=== PATIENT | female | born 1955 | race Caucasian/White ===

== ENCOUNTER 2020-02-12 06:27 | Inpatient (IN) | payer MEDICARE, BC ==
[2020-02-12] MEDS ORDERED: cefOXitin 2 GM Vial ONE (06:33)
[2020-02-12] MEDS ORDERED: Scopolamine 1.5 MG Transdermal Patch TOP SCH (07:00)
[2020-02-12] MEDS ORDERED: Celecoxib 200 MG Cap PO ONE (07:00)
[2020-02-12] MEDS ORDERED: Acetaminophen 500 MG Tab PO ONE (07:00)
[2020-02-12] MEDS ORDERED: Neostigmine Methylsulfate 1 MG/ML 5 ML Syringe ONE (07:11)
[2020-02-12] MEDS ORDERED: Rocuronium 50 MG/5 ML Vial ONE (07:11)
[2020-02-12] MEDS ORDERED: Dexamethasone 4 MG/ML SDV ONE (07:11)
[2020-02-12] MEDS ORDERED: Succinylcholine 200 MG/10 ML MDV ONE (07:11)
[2020-02-12] MEDS ORDERED: Propofol 200 MG/20 ML SDV ONE (07:11)
[2020-02-12] MEDS ORDERED: Ondansetron 4 MG/2 ML SDV ONE (07:11)
[2020-02-12] MEDS ORDERED: Glycopyrrolate 0.2 MG/ML 5 ML MDV ONE (07:11)
[2020-02-12] MEDS ORDERED: fentaNYL 250 MCG/5 ML SDV ONE ×2 (07:11→08:23)
[2020-02-12] MEDS ORDERED: Lactated Ringers 1,000 ML ONE (07:14)
[2020-02-12] MEDS ORDERED: Dextrose 5%-Lactated Ringers 1,000 ML IV SCH (07:30)
[2020-02-12] MEDS ORDERED: SODIUM CHLORIDE 0.9% IV SCH (08:00)
[2020-02-12] MEDS ORDERED: Magnesium Sulfate 4.7 GM in Sodium Chloride 0.9% 250 ML IV ONE (08:00)
[2020-02-12] MEDS ORDERED: MAGNESIUM SULFATE IV SCH (08:00)
[2020-02-12] MEDS ORDERED: Ketamine 50 MG in Sodium Chloride 0.9% 49.5 ML IV SCH (08:00)
[2020-02-12] MEDS ORDERED: Ketamine 500 MG/5 ML MDV IV SCH (08:00)
[2020-02-12] MEDS ORDERED: cefOXitin 2 GM in Sodium Chloride 0.9% 50 ML IV ONE (08:00)
[2020-02-12] MEDS ORDERED: hydrOXYzine HCL 100 MG/2 ML SDV IM ONE (10:01)
[2020-02-12] MEDS ORDERED: fentaNYL 100 MCG/2 ML SDV IVPUSH ONE (10:01)
[2020-02-12] MEDS ORDERED: Cyclobenzaprine 10 MG Tab PO PRN (11:32)
[2020-02-12] MEDS: Dextrose 5%-Lactated Ringers 1,000 ML IV SCH (11:59)
[2020-02-12] MEDS ORDERED: oxyCODONE 5 MG Tab PO PRN (12:00)
[2020-02-12] MEDS ORDERED: Ondansetron 4 MG/2 ML SDV IVPUSH PRN (12:00)
[2020-02-12] MEDS ORDERED: Metoclopramide 10 MG/2 ML SDV IVPUSH PRN (12:00)
[2020-02-12] MEDS ORDERED: HYDROmorphone 0.5 MG/0.5 ML Syringe IVPUSH PRN (12:00)
[2020-02-12] MEDS ORDERED: Labetalol 20 MG/4 ML Syringe IVPUSH PRN (12:00)
[2020-02-12] MEDS ORDERED: hydrOXYzine HCL 100 MG/2 ML SDV IM PRN (12:00)
[2020-02-12] MEDS ORDERED: Acetaminophen 500 MG Tab PO PRN (12:00)
[2020-02-12] MEDS ORDERED: HYDROmorphone 1 MG/ML Syringe IV PRN (12:00)
[2020-02-12] MEDS ORDERED: Calcium Gluconate 10% 1 GM/10 ML SDV IVPUSH PRN (12:00)
[2020-02-12] MEDS ORDERED: diphenhydrAMINE 50 MG/ML SDV IVPUSH PRN (12:00)
[2020-02-12] MEDS ORDERED: Pantoprazole 40 MG Vial IVPUSH SCH (14:00)
[2020-02-12] MEDS: cefOXitin 2 GM in Sodium Chloride 0.9% 50 ML IV SCH ×2 (14:41→20:26)
[2020-02-12] MEDS: Acetaminophen 500 MG Tab PO SCH ×2 (14:42→21:37)
[2020-02-12] MEDS ORDERED: MVI, Adult with Vitamin K 10 ML, Thiamine 200 MG, Chromium/Copper/Mang/Selen/Zn 1 ML in... IV SCH ×4 (16:00)
[2020-02-12] MEDS: Heparin Sodium 5,000 Units/ML Vial SUBCUT SCH (20:25)
[2020-02-13] MEDS: Dextrose 5%-Lactated Ringers 1,000 ML IV SCH (00:39)
[2020-02-13] MEDS: cefOXitin 2 GM in Sodium Chloride 0.9% 50 ML IV SCH ×3 (01:54→13:38)
[2020-02-13] MEDS ORDERED: Iopamidol 612 MG/ML 50 ML SDV PO ONE (03:15)
[2020-02-13] MEDS: Acetaminophen 500 MG Tab PO SCH ×3 (05:27→21:44)
[2020-02-13] MEDS ORDERED: Ondansetron 4 MG Tab.DIS PO PRN (07:13)
[2020-02-13] MEDS ORDERED: hydrOXYzine HCl 25 MG Tab PO PRN (07:14)
[2020-02-13] MEDS ORDERED: Dextrose 5%-Lactated Ringers 1,000 ML IV SCH (07:15)
[2020-02-13] MEDS: Levothyroxine 112 MCG Tab PO SCH (07:49)
[2020-02-13] MEDS: Heparin Sodium 5,000 Units/ML Vial SUBCUT SCH ×2 (07:55→19:07)
[2020-02-13] MEDS: Celecoxib 200 MG Cap PO SCH ×2 (08:05→20:08)
[2020-02-13] MEDS: Citalopram 20 MG Tab PO SCH (08:05)
[2020-02-13] MEDS: SCOPOLAMINE PATCH CHECK TOP SCH (08:06)
[2020-02-13] MEDS ORDERED: PREMARIN VAGINAL VAG SCH (09:00)
--- NOTE | 2020-02-13 09:04 | CR ---
[facility] HISTORY: Postbariatric surgery FINDINGS: Patient swallowed water-soluble contrast. Upright views of the abdomen show no evidence of extravasation or obstruction. There is a surgical drain in the left upper quadrant. IMPRESSION: Status post bariatric surgery No extravasation or obstruction seen
[2020-02-13] MEDS: Pantoprazole 40 MG Delayed-Release Granules 1 Packet PO SCH (10:33)
--- NOTE | 2020-02-13 11:01 | PN ---
DATE OF SERVICE: 02/13/2020 SUBJECTIVE: Alissa is postop day 1. Upper GI was normal. Vital signs have been stable. Afebrile. Oral intake 1230. Urine output 1700. VERONICA drain put out a light red drainage of 200. REVIEW OF SYSTEMS: Remainder of review of systems negative for any pertinent positives and negatives. OBJECTIVE: GENERAL: Alissa Sanderson is a 64-year-old female. She is alert and oriented. VITAL SIGNS: At 0707 is 96.5, 72, 16, blood pressure 134/65. HEENT: Negative. NECK: Supple. HEART: Regular rate and rhythm. LUNGS: Clear. ABDOMEN: Dressings dry and intact. Abdominal binder is on. EXTREMITIES: Without peripheral edema. ASSESSMENT: Laparoscopic Mena-en-Y gastric bypass surgery, liver biopsy, repair of diaphragmatic hernia, and excision of mediastinal lipoma. POSTOPERATIVE DIAGNOSES: 1. Morbid obesity. 2. Hepatomegaly. 3. Diaphragmatic hernia. 4. Mediastinal lipoma. 5. Date of surgery: 02/12/2020. Surgeon: Nils De Jesus MD. PLAN: Discontinue IV to 100 mL per hour. Step 2 with no cereal. Gastric bypass diet. May shower. Communication order written, 3 med cups per hour, 1 every 20 minutes. Record at bedside. Discontinue cardiac monitoring. Discontinue continuous pulse ox. Atarax 25 mg p.o. every 4 hours p.r.n. pain, Zofran ODT 4 mg q.4 hours p.r.n. nausea and vomiting. Discontinue IV Dilaudid and oxycodone. Will evaluate p.r.n. or in a.m. Karine Rice PA-C /[id number]
[2020-02-13] MEDS ORDERED: MVI, Adult with Vitamin K 10 ML, Thiamine 200 MG, Chromium/Copper/Mang/Selen/Zn 1 ML in... IV SCH ×4 (16:00)
[2020-02-14] MEDS: Acetaminophen 500 MG Tab PO SCH (06:13)
[2020-02-14 07:55] VITALS: BP 143/64; PULSE 67
[2020-02-14] MEDS: Levothyroxine 112 MCG Tab PO SCH (07:55)
[2020-02-14] MEDS: Heparin Sodium 5,000 Units/ML Vial SUBCUT SCH (07:55)
[2020-02-14] MEDS: Pantoprazole 40 MG Delayed-Release Granules 1 Packet PO SCH (08:31)
[2020-02-14] MEDS: SCOPOLAMINE PATCH CHECK TOP SCH (08:31)
[2020-02-14] MEDS: Celecoxib 200 MG Cap PO SCH (08:32)
[2020-02-14] MEDS: Citalopram 20 MG Tab PO SCH (08:33)
[2020-02-14] MEDS ORDERED: Cyanocobalamin (Vitamin B12) 1,000 MCG/ML SDV IM ONE (09:00)
--- NOTE | 2020-02-14 10:11 | DISCH ---
ADMISSION DIAGNOSES: 1. Morbid obesity. 2. BMI 37. 3. History of Jed thyroiditis. 4. Celiac disease. 5. Lipid disorder. 6. Obstructive sleep apnea. 7. Gastroesophageal reflux disease. DISCHARGE DIAGNOSES: 1. Laparoscopic Mena-en-Y gastric bypass surgery. 2. Liver biopsy. 3. Repair of diaphragmatic hernia. 4. Excision of mediastinal lipoma. POSTOPERATIVE DIAGNOSES: 1. Morbid obesity. 2. Hepatomegaly. 3. Diaphragmatic hernia. 4. Mediastinal lipoma. 5. Date of procedure: 02/12/2020. Surgeon: Nils De Jesus MD. HISTORY: Alissa Sanderson is a pleasant 64-year-old female with longstanding history of morbid obesity and increasing comorbidities. After preoperative evaluation and discussion of possible risks and possible complications, she wished to proceed with surgical procedure. HOSPITAL COURSE: Alissa had her surgery on 02/12/2020. She had no operative complications. On postop day 1, her IV was decreased to 100 mL per hour. She was started on step 2 gastric bypass diet with no cereal. On postop day 2, vital signs were stable. Activity was good. Pain is controlled with energy protocol. Activity good and she has had adequate bariatric diet education and was able to be discharged to home without any complications. DISPOSITION: Discharged to home. CONDITION: Stable and improving. Followup appointment with Karine Rice PA-C, on 02/22/2020 at 9:15 a.m. HOME MEDICATIONS: 1. Zofran ODT 4 mg q.4 hours p.r.n. nausea, #30. 2. Celebrex 200 mg p.o. daily, #28. 3. Tylenol Extra Strength 1000 mg q.8 hours p.o. pain. 4. To resume home medications of acyclovir 5% ointment 1 applicator topical p.r.n. cold sores. 5. Citalopram 20 mg daily. 6. Estrogen vaginal cream 1 dose every 72 hours. 7. Premarin 0.3 mg every 48 hours. 8. Flonase 2 sprays in each nostril once daily. 9. Hydrocortisone/Proctozone HC 2.5% one applicator rectal twice daily p.r.n. hemorrhoids. 10.Levothyroxine 112 mcg oral daily. 11.Triamcinolone Kenalog cream 0.1% one applicator twice daily. 12.Atorvastatin calcium 10 mg at bedtime. 13.Discontinue taking vitamins and supplements until 1st postop appointment. DIET: Step 2 gastric bypass diet with no cereal until 02/27/2020. Drink 8 to 10 glasses of water a day. ACTIVITY: No lifting greater than 10 pounds for 2 weeks. Other activity: Walk at least 6 times daily inside your home. Driving: Do not drive for 1 week. Shower/bathing: May shower. DISCHARGE INSTRUCTIONS: Notify provider if any fever, increased pain, nausea, vomiting. Keep site clean and dry. Wear abdominal binder for 2 weeks and then as tolerated. Special instruction: Use incentive spirometer 10 times every hour while awake.
--- NOTE | 2020-02-19 14:45 | OR ---
DATE OF PROCEDURE: 02/12/2020 SURGEON: Nils De Jesus MD PREOPERATIVE DIAGNOSIS: Morbid obesity. POSTOPERATIVE DIAGNOSES: 1. Morbid obesity. 2. Marked hepatomegaly. 3. Paraesophageal diaphragmatic hernia. 4. Mediastinal lipoma. OPERATIVE PROCEDURES: Diagnostic laparoscopy with: 1. Laparoscopic Mena-en-Y gastric bypass with long limb gastroenterostomy (59432). 2. Esteban-Cut needle liver biopsy (55916). 3. Repair of paraesophageal diaphragmatic hernia (59984). 4. Excision of mediastinal lipoma (75290). ANESTHESIA: General. HEALTH PLAN MANAGER: Karine Rice PA-C INDICATIONS FOR PROCEDURE: This is a 64-year-old female, presenting with longstanding morbid obesity and increasingly significant comorbidities. After preoperative evaluation and discussion, she wished to proceed with a gastric bypass procedure. Potential risks including bleeding, infection, leaks from various GI tract closures, problems with bowel obstruction over time as well as possibility of cardiopulmonary, septic, or hemorrhagic complications leading to were all discussed, and the patient wishes to proceed. DETAILS OF PROCEDURE: The patient was taken to the operating room and placed in a supine position. After general endotracheal anesthesia was induced, she was converted to a lithotomy position and the abdomen prepped and draped. 15 cm inferior and 5 cm left of the xiphoid process, a transverse incision was made and peritoneal cavity entered under direct vision with an Optiview trocar, inflated 15 mmHg pressure with CO2. Laparoscope was reinserted. No underlying trocar insertion site injuries were seen. Following this, bilateral transversus abdominis plane blocks were placed and the upper abdomen examined. The patient was noted to have marked hepatomegaly with liver volume being roughly 2 to 3 times normal and grossly fatty infiltrated. Esteban-Cut needle biopsy was obtained from left lobe of the liver. Minimal bleeding from the biopsy site was controlled with electrocautery. The omentum was then divided in the midline up to the level of the transverse colon. This allowed identification of the small bowel to the ligament of Treitz, and was traced out 150 cm distal to that point, where it was divided transversely with a RUCHI stapler. The small bowel was then traced out additional 175 cm where the [id number] enteroenterostomy was accomplished with an internal firing of the Endo-RUCHI 60 mm stapler. Common opening was then closed transversely with the same stapler, and the angles anastomosed and mesenteric defect approximated with 0 Ethibond stitch along with fibrin sealant. Divided end of the Mena limb was from the mesentery for a few centimeters, which allowed an antecolic position of the Mena limb up to the level of the gastroesophageal junction without tension. The liver was then retracted anteriorly and the patient was noted to have a moderate-sized paraesophageal diaphragmatic hernia containing a tongue of omentum along with perigastric fat and the edge of the gastric fundus. This was reduced. Peritoneum overlying was incised and reflected downward. During the course of the dissection, mediastinal lipoma was encountered which was then excised to facilitate more adequate crural repair. The hernia was then repaired with some 0 Ethibond sutures reinforced with PTFE pledgets. Gastrointestinal balloon catheter was then inflated 15 mL and pulled up snugly against the EG junction. Gastric wall over the apex of the balloon was then marked with electrocautery and the lesser omental tissue adjacent to the gastric cardia was then incised allowing dissection behind the stomach at that level. Pouch formation was initiated with transverse firing of the RUCHI stapler. The pouch was then completed with additional firings of RUCHI stapler up to and through the angle of His. Upon completion of the pouch, both staple lines were noted to be intact. The anvil of a 25 mm EEA stapler was then attached to Jackson sump type tube. The latter was brought down through the mouth, taken out through a small opening in the gastric pouch, allowing the anvil likewise to be pulled down to within the gastric pouch. The divided end of Mena limb was then opened, and main body of the EEA stapler passed several centimeters in the lumen of small bowel, brought up the anvil and united with it, thus creating the gastrojejunostomy. Upon removal of the stapler, double donuts of mucosa were noted within it and the small bowel was closed off with a vascular staple line. The gastrojejunostomy was ten reinforced with some 0 Ethibond seromuscular stitch along with fibrin sealant. Leak test was accomplished with injection of 120 mL of air in the gastric pouch while it was submerged with cefoxitin-containing saline solution. No leaks were identified. A single Ricki-Smith drain was taken out through the left lateral trocar site and positioned adjacent to the gastrojejunostomy, from there up into the splenic fossa. With no further problems noted, trocars were removed and the peritoneal cavity deflated. The incisions were closed with some 4-0 Vicryl skin stitch and the drain affixed with 4-0 Vicryl stitch as well. The patient was taken to the recovery room in satisfactory condition. There were no evident complications. Physician assistant director of plant operations, Karine Rice, played an essential role in assisting in this case, helping to position the patient, retract structures as needed, as well as suturing and cutting sutures when indicated. Her presence improved patient safety and decreased operative time. Nils De Jesus MD /[id number]
== END 2020-02-14 09:29 | disposition home or self-care (01) | DRG 621 ==
LOC: JP.SDS 06:27 → JP.SDSSCHI 06:28 → EDSTATUS 07:15 → JP.MS 10:00
PROVIDERS: ADMIT Surgery; ATTEND Surgery
PROC: 0D164ZA Bypass Stomach to Jejunum, Percutaneous Endoscopic Approach (ICD-10-PCS; principal; 2020-02-12)
PROC: 0FB24ZX Excision of Left Lobe Liver, Percutaneous Endoscopic Approach, Diagnostic (ICD-10-PCS; 2020-02-12)
PROC: 0BQT4ZZ Repair Diaphragm, Percutaneous Endoscopic Approach (ICD-10-PCS; 2020-02-12)
PROC: 0JB63ZZ Excision of Chest Subcutaneous Tissue and Fascia, Percutaneous Approach (ICD-10-PCS; 2020-02-12)
DX: E66.01 Morbid (severe) obesity due to excess calories (principal); Z68.37 Body mass index [BMI] 37.0-37.9, adult; R16.0 Hepatomegaly, not elsewhere classified; K44.9 Diaphragmatic hernia without obstruction or gangrene; D17.1 Benign lipomatous neoplasm of skin and subcutaneous tissue of trunk; G47.33 Obstructive sleep apnea (adult) (pediatric); K21.9 Gastro-esophageal reflux disease without esophagitis; E03.9 Hypothyroidism, unspecified; E78.5 Hyperlipidemia, unspecified; F32.9 Major depressive disorder, single episode, unspecified; K90.0 Celiac disease; R73.03 Prediabetes; I35.1 Nonrheumatic aortic (valve) insufficiency; F39 Unspecified mood [affective] disorder; R47.02 Dysphasia; Z90.49 Acquired absence of other specified parts of digestive tract; Z79.890 Hormone replacement therapy; Z79.899 Other long term (current) drug therapy; Z88.0 Allergy status to penicillin
CPT/HCPCS: 36415; 74240; 74240-26; 86850; 86900; 86901; 88304; 88307; 88313; A9270-GY; C9113; J0171; J0330; J0694; J1100; J1644; J2405; J2704; J2710; J2795; J3010; J3410; J3411; J3420; J3475; J3490; J7050; J7120; J7121; Q9967

== ENCOUNTER 2020-05-27 06:45 | Day surgery (SDC) | payer MEDICARE, BC ==
[2020-05-27] MEDS ORDERED: Propofol 200 MG/20 ML SDV ONE (07:30)
[2020-05-27] MEDS ORDERED: fentaNYL 100 MCG/2 ML SDV ONE (07:30)
[2020-05-27] MEDS ORDERED: Midazolam 1 MG/ML 2 ML SDV ONE (07:30)
[2020-05-27] MEDS ORDERED: Cyanocobalamin (Vitamin B12) 1,000 MCG/ML SDV IM ONE (08:00)
[2020-05-27] MEDS ORDERED: Lactated Ringers 1,000 ML IV SCH (08:00)
[2020-05-27] MEDS ORDERED: Glycopyrrolate 0.2 MG/ML 2 ML SDV IVPUSH ONE (09:00)
[2020-05-27] MEDS ORDERED: MVI, Adult with Vitamin K 10 ML, Thiamine 200 MG, Zinc/Copper/Manganese/Selenium 1 ML i... IV ONE ×4 (09:00)
[2020-05-27 10:58] VITALS: BP 129/73; PULSE 70
--- NOTE | 2020-06-02 11:52 | OR ---
DATE OF PROCEDURE: 05/27/2020 SURGEON: Nils De Jesus MD PREOPERATIVE DIAGNOSIS: Probable stricture at gastrojejunostomy. POSTOPERATIVE DIAGNOSIS: Mild stricture at gastrojejunostomy. OPERATIVE PROCEDURE: Upper gastrointestinal endoscopy with dilation of gastrojejunostomy (82316). ANESTHESIA: IV sedation. INDICATION FOR PROCEDURE: This is a 64-year-old status post Mena-en-Y gastric bypass in January of this past year who presents with some intermittent dysphagia . Plan is to proceed with an upper endoscopy with dilation as indicated. Potential risks including bleeding and perforation were discussed, and the patient wishes to proceed. DETAILS OF THE PROCEDURE: The patient was taken to the operative room and placed in a left lateral decubitus position. IV sedation was administered, after which the upper GI endoscope was passed orally through the esophagus gastric pouch. The patient was noted to have a slight narrowing of the gastrojejunostomy. The scope could be passed through the anastomosis. A Bard gastrointestinal catheter was then centered across the anastomosis and inflated to 45-Citizen Of [place] size. It was held in position for 1 minute, after which balloon catheter was deflated, withdrawn. Some dilation was confirmed. No complications were evident. Procedure concluded. The patient was taken to the recovery room in satisfactory condition. Nils De Jesus MD /[id number]
== END 2020-05-27 11:15 | disposition home or self-care (01) ==
LOC: JP.SDS 06:45
PROVIDERS: ATTEND Surgery
DX: K91.89 Other postprocedural complications and disorders of digestive system (principal); R13.10 Dysphagia, unspecified; G47.33 Obstructive sleep apnea (adult) (pediatric); K31.9 Disease of stomach and duodenum, unspecified; Z98.84 Bariatric surgery status
CPT/HCPCS: 43245; J2250; J2704; J3010; J3411; J3420; J3490; J7120

== ENCOUNTER 2022-11-10 05:56 | Day surgery (SDC) | payer MEDICARE, BC ==
[2022-11-10] MEDS ORDERED: Lactated Ringers 1,000 ML IV SCH (06:15)
[2022-11-10] MEDS ORDERED: Glycopyrrolate 0.2 MG/ML 2 ML SDV IVPUSH ONE (06:15)
[2022-11-10] MEDS ORDERED: Cyanocobalamin (Vitamin B12) 1,000 MCG/ML SDV IM ONE (06:15)
[2022-11-10] MEDS ORDERED: MVI, Adult with Vitamin K 10 ML, Thiamine 200 MG, Chromium/Copper/Mang/Selen/Zn 1 ML in... IV ONE ×4 (07:15)
[2022-11-10] MEDS ORDERED: MVI, Adult with Vitamin K 10 ML, Thiamine 200 MG, Chromium/Copper/Mang/Selen/Zn 1 ML in... IV SCH ×4 (07:15)
[2022-11-10] MEDS ORDERED: Propofol 200 MG/20 ML SDV ONE (07:25)
[2022-11-10] MEDS ORDERED: fentaNYL 50 MCG/ML SDV ONE (07:25)
[2022-11-10] MEDS ORDERED: Midazolam 1 MG/ML 2 ML SDV ONE (07:25)
[2022-11-10] MEDS ORDERED: Pantoprazole 40 MG Vial IVPUSH ONE (07:37)
[2022-11-10 09:28] VITALS: BP 100/57; PULSE 63
== END 2022-11-10 09:41 | disposition home or self-care (01) ==
LOC: JP.SDS 05:56
PROVIDERS: ATTEND Surgery
DX: K29.70 Gastritis, unspecified, without bleeding (principal); K21.9 Gastro-esophageal reflux disease without esophagitis; E78.5 Hyperlipidemia, unspecified; R73.03 Prediabetes; Z98.84 Bariatric surgery status; Z88.0 Allergy status to penicillin; Z88.5 Allergy status to narcotic agent; Z91.048 Other nonmedicinal substance allergy status
CPT/HCPCS: 87081; C9113; J2250; J2704; J3010; J3411; J3420; J3490; J7120

== ENCOUNTER 2023-12-08 09:12 | Day surgery (SDC) | payer MEDICARE, BC ==
[~2023-12-08 09:12] MED LIST: Midazolam 1 MG/ML 2 ML SDV ONE; Propofol 200 MG/20 ML SDV ONE; fentaNYL 50 MCG/ML SDV ONE
[2023-12-08] MEDS: Cyanocobalamin (Vitamin B12) 1,000 MCG/ML SDV IM ONE (09:34)
[2023-12-08] MEDS: Lactated Ringers 1,000 ML IV SCH (09:43)
[2023-12-08] MEDS: MVI, Adult with Vitamin K 10 ML, Thiamine 200 MG, Chromium/Copper/Mang/Selen/Zn 1 ML in... IV ONE (10:54)
[2023-12-08 12:48] VITALS: BP 114/54; PULSE 64
== END 2023-12-08 13:05 | disposition home or self-care (01) ==
LOC: JP.SDS 09:12
PROVIDERS: ATTEND Surgery
DX: R10.13 Epigastric pain (principal); K21.9 Gastro-esophageal reflux disease without esophagitis; Z98.84 Bariatric surgery status; E78.5 Hyperlipidemia, unspecified
CPT/HCPCS: 00731; 43239; 43245; 88305; C1726; J2250; J2704; J3010; J3411; J3420; J7120